=== PATIENT | female | born 1990 | race Caucasian/White ===

== ENCOUNTER 2017-05-09 17:05 | Emergency (ER) | payer MEDICAID ==
[~2017-05-09] VITALS: Ht 165.1 cm; Wt 73.0 kg
[2017-05-09 17:13] VITALS: BP 132/78
== END 2017-05-09 17:15 | disposition left against medical advice (07) ==
LOC: ER 17:05
DX: M79.644 Pain in right finger(s) (principal); Z53.21 Procedure and treatment not carried out due to patient leaving prior to being seen by health care provider